=== PATIENT | male | born 1960 | race Caucasian/White ===

== ENCOUNTER → 2018-07-01 | Outpatient (CLI) | payer MEDICAID | LOC: EMCIMAGING 13:48 | PROVIDERS: ATTEND Internal Medicine | DX: R90.82 White matter disease, unspecified (principal); J01.80 Other acute sinusitis; S46.011A Strain of muscle(s) and tendon(s) of the rotator cuff of right shoulder, initial encounter; M24.811 Other specific joint derangements of right shoulder, not elsewhere classified; Z87.820 Personal history of traumatic brain injury | CPT/HCPCS: 70551-PN; 73221-PN ==

== ENCOUNTER → 2018-09-12 | Outpatient (CLI) | payer MEDICAID | LOC: EMCIMAGING 09:57 ==